=== PATIENT | male | born 1980 | race Caucasian/White ===

== ENCOUNTER → 2016-09-05 | Outpatient (CLI) | payer OTHER ==
[~2016-09-05] MED LIST: CETI10TA22 PO; CLON0.12 PO; GABA-585 PO; MELO7.5T5 PO; OMEP20CA9 PO
--- NOTE | 2016-09-06 03:50 | PAIN ---
DATE OF SERVICE: 09/05/2016 INITIAL CONSULTATION FOR PAIN CLINIC CHIEF COMPLAINT: Low back and right lower extremity pain. HISTORY OF PRESENT ILLNESS: This is a 36-year-old male who presents with history of pain in the low back and right lower extremity for about 2 years, which is increased with activity, standing, walking, changing positions. He reports that it radiates into the groin as well anteriorly, more on the right than the left. It is across the low back, into the posterior hips, gluteus and into the lower extremities. It is again much worse on the right with some tingling and numbness in the toes on the right foot, posterior gluteus, posterior thigh, posterior calf, posterior lateral calf and into the foot and toes. The patient reports it as constant, throbbing, shooting, and radiating with numbness and tingling, again worse with standing and walking, but he is able to sit, which is more comfortable and riding in a car does not bother him. The patient reports it awakens him from sleep at night but not every night. It does not affect his bowel or bladder control, but does affect his ability to walk again greater than about 15-20 minutes. He has significant fatigability and has had several occasions where he has put his weight on his right leg and it is giving out on him where he has almost fallen by his report. The patient has had some chiropractic treatment as well as some physical therapy, which he reports only helped very minimally with each of these. The patient is taking cyclobenzaprine, Mobic and Neurontin, which he reports worked to only a slight extent, it may take the edge off the pain slightly but nothing significant. The patient did have MRI scan of the lumbar spine dated 12/2014 and has some L5 spondylosis without significant spondylolisthesis without any significant stenosis or neural foraminal compromise at the time of the MRI. The patient rates his disability rating from 0 to 10, 10 being the worst, as a 5 with family and home responsibilities, recreation, social activity, occupation and life support activities, 1 with self-care and 0 with sexual activity. The patient reports no loss of motor function, but significant fatigability again with the right lower extremity. PAST MEDICAL HISTORY: Significant for hearing loss in the right ear, seasonal sinus congestion, gastroesophageal reflux. PAST SURGICAL HISTORY: Previous surgeries include adenoidectomy as a child. CURRENT MEDICATIONS: Include clonazepam, Mobic, Neurontin, Zyrtec and omeprazole. ALLERGIES: The patient has no known drug allergies. FAMILY HISTORY: Significant for colon cancer. SOCIAL HISTORY: The patient does not smoke, drinks 1-2 alcoholic drinks a week on average. He is and lives with his spouse, has one child living at home. He lives locally in [place], [place]. He works as a registered nurse. REVIEW OF SYSTEMS: The patient's review of systems is positive for those items mentioned in the history of present illness. All systems are reviewed and otherwise negative. It is complete, full and well documented on the patient's chart. PHYSICAL EXAMINATION: VITAL SIGNS: Today, the patient's blood pressure is 134/96, repeat blood pressure is 152/86, pulse is 71, respirations 18, temperature is 98.5 degrees Fahrenheit, height is 73 inches, weight is 233 pounds. GENERAL: The patient is awake, alert, oriented, appropriate, very pleasant demeanor. HEENT: Shows normocephalic and atraumatic. Extraocular movements are intact and symmetrical. Oral cavity shows mucous membranes are moist and pink. Dentition is intact. NECK: Shows anterior throat supple without palpable lymphadenopathy noted. Swallow reflex is symmetrical. Neck shows full rotational motion of the cervical spine without difficulty or tenderness including extension and flexion. CHEST: Shows normal on inspection. Breath sounds are clear to auscultation bilaterally. HEART: Shows S1 and S2 clear. No murmurs auscultated. ABDOMEN: Soft, nontender, nondistended. No palpable organomegaly. No rebound or guarding demonstrated. BACK: Shows spine grossly in the midline. Normal-appearing cervical lordotic curvature, thoracic kyphotic curvature, and lumbar lordotic curvature. No bruises, lesions, rashes or scars are noted. Lumbar paraspinous muscle shows symmetrical on inspection. With palpation, it shows some moderate tenderness with palpation bilaterally but only diffusely in the lower lumbar distribution without radiation. No tenderness over the spinous processes. No tenderness over the sacrum or sacroiliac regions with palpation. The patient's lumbar spine shows good rotational motion both laterally as well as extension and flexion without difficulty or pain reported. EXTREMITIES: Lower extremities show deep tendon reflexes at 2+ in the patellar and 1+ tendo calcaneus tendons. Motor exam is strong with 5/5 dorsiflexion, extension, quadriceps and hamstring flexion. Peripheral pulses are 2+ posterior tibial and dorsalis pedis pulses. No peripheral edema is noted. No clubbing. No cyanosis. Lower extremities are warm and dry to touch, equal in color and appearance. Straight leg raise noted to be slightly positive, but only mildly at about 45 degrees on the right, which is decreased with knee flexion. Left side is negative. Gaenslen's and Artur's maneuvers are negative bilaterally as well. The patient is able to stand, stand on his toes without difficulty or loss of balance. He has a normal-appearing gait, walking without any assistive devices such as canes or walkers to ambulate. IMPRESSION: 1. This is a 36-year-old male with approximate 2-year history of increasing pain in the low back and into the right greater than left lower extremity in radicular fashion. 2. MRI scan of the lumbar spine as noted. 3. History of gastroesophageal reflux. PLAN: Options were discussed with the patient including conservative medical management, physical therapy, interventional techniques and he would like to pursue interventional techniques. He has done some physical therapy in the past. He is doing exercises currently and some chiropractic treatment without significant improvement. We discussed lumbar epidural steroid injection using description as well as anatomical models to describe the procedure. We will wait for preauthorization. The patient would like to proceed when this is authorized. We will have him return in approximately 1 week for lumbar epidural steroid injection at that time. CHRIST CHACON MD DR: NATHALIE/tunde JOB#: [id number] / [id number]
== END | disposition home or self-care (01) ==
LOC: PNCL 09:41
PROVIDERS: ATTEND Anesthesiology
DX: M54.5 Low back pain (principal); M79.604 Pain in right leg
CPT/HCPCS: 99214

== ENCOUNTER → 2016-09-19 | Outpatient (CLI) | payer OTHER ==
[~2016-09-19] MED LIST changes: +IOHEXOL 180 MG/ML 10 ML VIAL. ONE; +methylPREDNISolone ACETATE 40 MG/ML VIAL. ONE; +methylPREDNISolone ACETATE 80 MG/ML VIAL. ONE
--- NOTE | 2016-09-20 03:35 | PAIN ---
DATE OF SERVICE: 09/19/2016 DIAGNOSES: Lumbar radiculopathy with lumbar spondylosis. HISTORY OF PRESENT ILLNESS: The patient is a 36-year-old male who returns for followup status post initial evaluation and preauthorization for lumbar epidural steroid injection. The patient returns today with an authorization wishing to proceed with still pain reporting in low back and right lower extremity. Also in the posterior hip, posterior gluteus, posterior thigh radiating anywhere from a 1-5 on a scale of 10. The patient reports worse with activity, standing and walking. It is a tingling sensation, sharp, shooting, also radiating. The patient reports no new motor or sensory deficits, no new bowel or bladder incontinence or other complaints. PHYSICAL EXAMINATION: VITAL SIGNS: Today, blood pressure is 141/94, pulse is 66, respirations 18, temperature is 98.1 degrees Fahrenheit, height is 73 inches, weight is 235 pounds. GENERAL: The patient is awake, alert, oriented, appropriate, very pleasant demeanor. HEENT: Shows normocephalic and atraumatic. Extraocular movements are intact and symmetrical. Oral cavity shows mucous membranes are moist and pink. Dentition is intact. NECK: Shows anterior throat supple without palpable lymphadenopathy noted. Swallow reflex is symmetrical. CHEST: Shows normal on inspection. Breath sounds are clear to auscultation bilaterally. HEART: Shows S1 and S2 clear. ABDOMEN: Soft, nontender, nondistended. No palpable organomegaly. No rebound or guarding demonstrated. BACK: Shows spine grossly in the midline. EXTREMITIES: The patient's lower extremity show deep tendon reflexes at 2+ in the patellar and 1+ tendo calcaneus tendons and equal. Motor exam is strong with 5/5 dorsiflexion, extension, quadriceps and hamstring flexion and equal. PLAN: Options were discussed with the patient. The patient's old chart was reviewed, his current medication regimen updated, current review of systems updated today as well and we will proceed with a lumbar epidural steroid injection today under fluoroscopic guidance. Risks were again discussed including but not limited to bleeding, infection, possibility of epidural, hematoma, subsequent neurological compromise, dural puncture, headaches, spinal cord and/or nerve damage, side effects of steroid medication and poor results regarding pain control. The patient understands and wishes to proceed. The patient will return to clinic in approximately two weeks for followup. Counseled on return appointment and activity level, and side effects to be aware of. DIAGNOSES: Lumbar radiculopathy with lumbar spondylosis. PROCEDURE: Lumbar epidural steroid injection translaminar approach at the L5-S1 level using C-arm fluoroscopic guidance under sterile prep and drape using local anesthetic. MEDICATIONS INJECTED: 120 mg Depo-Medrol plus 10 mL preservative-free normal saline, and 2 mL Isovue for contrast. CONDITION ON DISCHARGE: Stable. The patient tolerated the procedure well. He had no complications. CHRIST CHACON MD DR: NATHALIE/tunde JOB#: [id number] / [id number]
== END | disposition home or self-care (01) ==
LOC: PNCL 09:42
PROVIDERS: ATTEND Anesthesiology
DX: M47.26 Other spondylosis with radiculopathy, lumbar region (principal)
CPT/HCPCS: 62323; J1030; J1040

== ENCOUNTER → 2016-10-04 | Outpatient (CLI) | payer OTHER ==
[~2016-10-04] MED LIST changes: -IOHEXOL 180 MG/ML 10 ML VIAL. ONE; +IOHEXOL 180 MG/ML 20ML VIAL. ONE
== END | disposition home or self-care (01) ==
LOC: PNCL 08:54
PROVIDERS: ATTEND Anesthesiology
DX: M47.816 Spondylosis without myelopathy or radiculopathy, lumbar region (principal)
CPT/HCPCS: 62323; J1030; J1040

== ENCOUNTER → 2016-10-18 | Outpatient (CLI) | payer OTHER ==
[~2016-10-18] MED LIST changes: +IOHEXOL 180 MG/ML 10 ML VIAL. ONE; -IOHEXOL 180 MG/ML 20ML VIAL. ONE
== END | disposition home or self-care (01) ==
LOC: PNCL 07:52
PROVIDERS: ATTEND Anesthesiology
DX: M47.26 Other spondylosis with radiculopathy, lumbar region (principal)
CPT/HCPCS: 62323; J1030; J1040